=== PATIENT | female | born 1950 | race Caucasian/White ===

== ENCOUNTER → 2024-02-07 15:00 | Outpatient (CLI) | payer MEDICARE, OTHER, SELFPAY ==
--- NOTE | 2024-02-07 15:06 | DI.NM.S_ITS ---
PROCEDURE: NM JERO PERF SPECT R&S PHARM Rest and pharmacological stress myocardial perfusion SPECT with gated imaging and ejection fraction RADIOPHARMACEUTICAL: 24.3 mCi Tc-99m tetrafosmin IV at rest and 24.8 mCi Tc-99m tetrafosmin IV at peak effect of pharmacological stress. [id number] was performed. INDICATIONS: ABN EKG, shortness of breath TECHNIQUE: Radiopharmaceutical was injected at peak stress test, and also at rest. SPECT images were obtained. SPECT myocardial perfusion images were displayed in short axis, horizontal long axis, and vertical long axis views. Gated images were reviewed using [employer] software. COMPARISON: None. CARDIAC STRESS: A pharmacologic stress test was performed under the supervision of an attending staff, using an infusion of 0.4mg IV X1. Hemodynamic data: There is normal blood pressure and heart rate response to pharmacologic stress. Symptoms: The patient denied anginal chest pain. Aminophylline: none EKG: No diagnostic changes of ischemia; no ectopy. FINDINGS: Raw data: There is good myocardial uptake of radiotracer. No significant motion artifacts. Left ventricle function: Gated images demonstrate normal left ventricular wall thickening. No segmental wall motion abnormalities. No transient ischemic dilation; TID is 0.9 (normal less than 1.3). Left ventricle resting end diastolic volume is 50 mL. Left ventricle stress ejection fraction is 88%; normal range is above 45%. Myocardial perfusion: There is normal distribution of activity in the right and left ventricular myocardium. No fixed or reversible perfusion defects. SSS 0. IMPRESSION: Low risk, normal pharm nuclear stress test. No perfusion evidence of ischemia or infarction. Normal left ventricular size, wall motion, and systolic function (EF post stress 88%). No angina and no ST changes with lexiscan. Dictated by: Israel Houser MD on 02/09/2024 at 13:51 Approved by: Israel Houser MD on 02/09/2024 at 13:52
== END ==
LOC: NUCM 15:03
PROVIDERS: Referring Provider Internal Medicine Cardiovascular Disease; Visit Provider Internal Medicine Cardiovascular Disease
DX: R94.31 Abnormal electrocardiogram [ECG] [EKG] (principal); R06.09 Other forms of dyspnea
CPT/HCPCS: 78452; 93017; A9502; J2785